=== PATIENT | male | born 1990 | race Caucasian/White ===

== ENCOUNTER 2019-01-25 10:38 | Day surgery (SDC) | payer OTHER ==
[2019-01-25] VITALS (15 sets, daily range): BP systolic 105–156; BP diastolic 69–83; PULSE 48–68; RESP 14–26; Ht 180.3 cm; Wt 85.5 kg
[~2019-01-25] VITALS: Ht 180.3 cm; Wt 85.5 kg
--- NOTE | 2019-01-25 11:00 | HPN ---
Date/Time of Note Date/Time of Note DATE: 01/25/19 TIME: 11:00 Interval H&P Admission Note Pt. seen H&P reviewed: No system changes MELITA SCHMITZ January 25, 2019 11:00
[2019-01-25] MEDS ORDERED: GABA-526 ORAL (11:10)
[2019-01-25] MEDS ORDERED: GABA300C16 PO (11:10)
[2019-01-25] MEDS ORDERED: PROP40TA4 ORAL (11:10)
[2019-01-25] MEDS ORDERED: QUET300T5 PO (11:10)
[2019-01-25] MEDS ORDERED: CEFAZOLIN 2 GM/50 ML (PMX) 50 ML IVPB ONE (11:30)
[2019-01-25] MEDS ORDERED: LACTATED RINGER'S 1,000 ML IV* ONE (11:30)
--- NOTE | 2019-01-25 13:40 | PREAC ---
Date/Time of Note Date/Time of Note DATE: 01/25/19 TIME: 13:37 Anesthesia Eval and Record Evaluation Time Pre-Procedure Interview DATE: 01/25/19 TIME: 13:37 Age 28 Sex male NPO: 8 hrs Preoperative diagnosis right 5th metacarpal shaft fracture Planned procedure orif right 5th metacarpal fx Past Medical History Past Medical History: Includes Pulm: Asthma Surgery & Anesthesia Issues No known issue Meds Anticoagulation: No Beta Meera within 24 hr: No Reason Beta Meera not given: Pt. not on B-Meera Reported Medications Quetiapine Fumarate* (Seroquel* XR) 300 Mg Tab.sr.24h, 300 MG PO QHS, #30 TAB 01/25/19 Propranolol Hcl* (Propranolol Hcl*) 40 Mg Tablet, 120 MG ORAL DAILY 01/25/19 Gabapentin* (Gabapentin*) 600 Mg Tablet, 1 TAB ORAL BID 01/25/19 Gabapentin* (Gabapentin*) 300 Mg Capsule, 1 MG PO BID, #270 CAP 01/25/19 Current Medications Lactated Ringer's 1,000 ml @ 20 mls/hr Q24H ONCE IV* ; Start 01/25/19 at 11:30; Stop 01/26/19 at 11:29 Meds reviewed: Yes Allergies Coded Allergies: escitalopram (Verified Allergy, Unknown, 01/25/19) Allergies Reviewed: Yes Labs/Studies Labs Reviewed: Reviewed by anesthesiologist test: N/A Pre-procedure Exam Last vitals Vital Signs Date Temp Pulse Resp B/P (MAP) Pulse Ox O2 O2 Flow FiO2 Time Delivery Rate 01/25/19 97.7 68 16 122/75 97 Room Air 12:56 (91) Airway: Adequate mouth opening, Adequate thyromental dist Mallampati: Mallampati II Teeth: Normal Lung: Normal Heart: Normal ASA Physical Status ASA physical status: 2 Emergency: None Planned Anesthetic General/MAC: LMA Planned Pain Management Parenteral pain med Pre-operative Attestations Prior to commencing anesthesia and surgery, the patient was re-evaluated, there was verification of: *The patient's identity *The results of appropriate recent lab work and preoperative vital signs *The above evaluation not changing prior to induction *Anesthetic plan, risk benefits, alternative and complications discussed with patient/family; questions answered; patient/family understands, accepts and wishes to proceed. NILS HENSLEY January 25, 2019 13:40
[2019-01-25] MEDS ORDERED: PROPOFOL 20 ML ONE (13:57)
[2019-01-25] MEDS ORDERED: ROCURONIUM 50 MG INJ ONE (13:58)
[2019-01-25] MEDS ORDERED: BUPIVACAINE 0.5% (SDV) 30 ML INJ ONE (13:59)
[2019-01-25] MEDS ORDERED: FENTAnyl 50 MCG/ML VIAL ONE (14:00)
[2019-01-25] MEDS ORDERED: CEFAZOLIN 1 GM INJ ONE (14:18)
[2019-01-25] MEDS ORDERED: LIDOCAINE 2% (SDV) 5 ML INJ ONE (14:18)
[2019-01-25] MEDS ORDERED: ONDANSETRON 4 MG INJ ONE (14:26)
[2019-01-25] MEDS ORDERED: DEXAMETHASONE 4 MG/ML 5 ML INJ ONE (14:26)
[2019-01-25] MEDS ORDERED: POLYMYXIN/BACITRACIN 1L IRRIG IRR ONE (14:28)
[2019-01-25] MEDS ORDERED: GLYCOPYRROLATE 0.4 MG INJ ONE (14:53)
[2019-01-25] MEDS ORDERED: NEOSTIGMINE 3 MG/3 ML SYRINGE ONE (14:53)
--- NOTE | 2019-01-25 15:08 | PAC ---
Date/Time of Note Date/Time of Note DATE: 01/25/19 TIME: 15:08 Post-Anesthesia Notes Post-Anesthesia Note Last documented vital signs Vital Signs Date Temp Pulse Resp B/P (MAP) Pulse Ox O2 O2 Flow FiO2 Time Delivery Rate 01/25/19 97.7 68 16 122/75 97 Room Air 1508 (91) Activity: WNL Respiratory function: WNL Cardiovascular function: WNL Mental status: Baseline Pain reasonably controlled: Yes Hydration appropriate: Yes Nausea/Vomiting absent: Yes NILS HENSLEY January 25, 2019 15:08
[2019-01-25] MEDS ORDERED: MEPERIDINE 25 MG INJ IV PRN (15:30)
[2019-01-25] MEDS ORDERED: DIPHENHYDRAMINE 50 MG INJ IV PRN (15:30)
[2019-01-25] MEDS ORDERED: hydrALAzine 20 MG INJ IV PRN (15:30)
[2019-01-25] MEDS ORDERED: MIDAZOLAM 1 MG/ML 2 ML INJ IV PRN (15:30)
[2019-01-25] MEDS ORDERED: ALBUTEROL 0.083% (NEB) 2.5 MG/3 ML AMP HHN PRN (15:30)
[2019-01-25] MEDS ORDERED: METOCLOPRAMIDE 10 MG INJ IV PRN (15:30)
[2019-01-25] MEDS ORDERED: FENTAnyl 50 MCG/ML VIAL IV PRN ×3 (15:30)
[2019-01-25] MEDS ORDERED: EPHEDrine SULFATE 50 MG/5 ML SYG IV PRN (15:30)
[2019-01-25] MEDS ORDERED: KETOROLAC 30 MG INJ IV PRN (15:30)
[2019-01-25] MEDS ORDERED: HYDROmorphONE 1 MG/5 ML IV SYRINGE IV PRN ×3 (15:30)
[2019-01-25] MEDS ORDERED: OXYCODONE/ACETAMINOPHEN (5/325) TAB PO PRN ×2 (15:30)
[2019-01-25] MEDS ORDERED: ONDANSETRON 4 MG INJ IV PRN (15:30)
[2019-01-25] MEDS ORDERED: LABETALOL HCL 20MG INJ IV PRN (15:30)
--- NOTE | 2019-01-25 16:13 | OPPN ---
Date/Time of Note Date/Time of Note DATE: 01/25/19 TIME: 16:13 Operative Report Preoperative Diagnosis Right small finger metacarpal shaft fracture Postoperative Diagnosis Right small finger metacarpal shaft fracture Operation/Procedure Performed Right small finger metacarpal shaft fracture ORIF Surgeon see signature line assistance coordinator none Anesthesia: general Estimated blood loss: 0 - 10 ml's Transfusion Required none Specimen none Grafts/Implants none Complications none MELITA SCHMITZ January 25, 2019 16:13
--- NOTE | 2019-01-25 19:19 | OPR ---
DATE OF OPERATION: 01/25/2019 SURGEON: Gildardo Puentes MD ANESTHESIA: Peripheral nerve block plus general. PREOPERATIVE DIAGNOSIS: Right small finger metacarpal shaft fracture, transverse, displaced. POSTOPERATIVE DIAGNOSIS: Right small finger metacarpal shaft fracture, transverse, displaced. PROCEDURE: Open reduction internal fixation right small finger metacarpal shaft fracture, displaced. OPERATIVE FINDINGS: Displaced right small finger metacarpal shaft fracture. INDICATION FOR PROCEDURE: This is a 28-year-old male with injury to the right hand. He was seen in clinic and diagnosed with displaced fracture of the right small finger metacarpal shaft. We discusse d the options, the patient elected to proceed with surgical intervention, understanding the risks and benefits. DESCRIPTION OF PROCEDURE: The patient was seen in the preoperative area. All further questions were answered. Again, he gave informed consent understanding risks and benefits. He was taken to operat alondra suite and placed in supine position. The anesthesia team performed a peripheral nerve block and the patient was placed under general anesthesia. Ancef 2 grams IV given. A tourniquet placed in the right upper extremity. Right upper extremity was prepped with ChloraPrep stick and draped in usual sterile fashion. Esmarch bandage was used to exsanguinate the extremity and tourniquet inflated to 2 50 mmHg. A longitudinal incision over the dorsal aspect of the right small finger metacarpal was uti lized where sharp dissection carried down through skin and subcutaneous tissue. The extensor tendons to the small finger were protected and the metacarpal shaft fracture was visualized. The fracture s ite was mobilized and was debrided back to clean bony edges. The fracture was reduced into a more an atomic position and was held with a pointed reduction clamp. A 0.035 K-wire was driven retrograde fr om the metacarpal head into the metacarpal base across the fracture site. An additional 0.035 K-wire was driven retrograde from the metacarpal head past fracture site into the metacarpal base. The cla mp was taken off and the fracture was quite stable. X-ray imaging showed appropriate hardware placem ent and bony alignment. Pins were cut short and wound copiously irrigated. Skin closed with 5-0 nyl on. Xeroform placed over wound followed by sterile gauze, Webril, and short arm ulnar gutter splint. Tourniquet deflated after 20 minutes and patient was awakened from anesthesia. He was taken to pos toperative suite in stable condition, tolerated procedure well without complication. SPECIMENS: None. ESTIMATED BLOOD LOSS: 5 mL COUNTS: Sponge, instrument, needle counts correct. TOURNIQUET TIME: 20 minutes. CONDITION ON DISCHARGE: Stable. The patient was given a nonrefillable 5-day prescription for pain medication for surgery today. Dictated By: GILDARDO MADISON/EVELYN Conf#: [id number] DID#: [id number]
== END 2019-01-25 16:55 | disposition home or self-care (01) ==
LOC: SDS 10:38
PROVIDERS: ATTEND Orthopaedic Surgery Hand Surgery
DX: S62.326D Displaced fracture of shaft of fifth metacarpal bone, right hand, subsequent encounter for fracture with routine healing (principal); W22.8XXD Striking against or struck by other objects, subsequent encounter; J45.909 Unspecified asthma, uncomplicated
CPT/HCPCS: 26615; 73130; C1713; J0690; J1100; J2405; J2710; J3010; Z7512; Z7610